=== PATIENT | female | born 1980 | race Caucasian/White ===

== ENCOUNTER 2017-03-12 11:39 | Emergency (ER) | payer SELFPAY ==
[2017-03-12 12:21] VITALS: BP 143/99
[2017-03-12] MEDS ORDERED: DELTASONE PO ONE (15:07)
[2017-03-12] MEDS ORDERED: TESSALON PERLES PO ONE (15:07)
--- NOTE | 2017-03-12 15:34 | Emergency Department Report ---
ED ENT HPI - General Chief complaint: Sore Throat Stated complaint: SORE THROAT Time Seen by Provider: 03/12/17 14:49 Source: patient Mode of arrival: Ambulatory Limitations: No Limitations - History of Present Illness Initial comments: PT c/o sore throat x 1 week. PT states last week, she had fever, and it broke on . PT states that she has been coughing and having sore throat. PT states her voice has been hoarse for a few days. PT states her 8 year old goes to the paralegal tomorrow for cough. MD complaint: sore throat Onset/Timin -: Gradual, week(s) Location: throat Severity: mild (sore throat ), severe (cough ) Severity scale (0 -10): 4 Quality: aching Consistency: constant Improves with: swallowing (warm liquids ) Worsens with: other (coughing ) Associated Symptoms: fever, cough - Related Data Home Medications Medication Instructions Recorded Confirmed Last Taken No Known Home Medications [No 03/12/17 03/12/17 Unknown Reported Home Medications] Allergies Allergy/AdvReac Type Severity Reaction Status Date / Time No Known Allergies Allergy Unverified 03/12/17 12:16 ED Dental HPI - General Chief complaint: Sore Throat Stated complaint: SORE THROAT Time Seen by Provider: 03/12/17 14:49 Source: patient Mode of arrival: Ambulatory Limitations: No Limitations - Related Data Home Medications Medication Instructions Recorded Confirmed Last Taken No Known Home Medications [No 03/12/17 03/12/17 Unknown Reported Home Medications] Allergies Allergy/AdvReac Type Severity Reaction Status Date / Time No Known Allergies Allergy Unverified 03/12/17 12:16 ED Review of Systems ROS: Stated complaint: SORE THROAT Other details as noted in HPI Comment: All other systems reviewed and negative Constitutional: fever ENT: throat pain. denies: ear pain Respiratory: cough, other (productive green sputum, at times pt states she coughs so hard, that it has some traces of blood). denies: shortness of breath , SOB with exertion, SOB at rest Gastrointestinal: denies: vomiting ED Past Medical Hx - Past Medical History Previous Medical History?: No - Surgical History Past Surgical History?: No - Social History Smoking Status: Never Smoker Substance Use Type: None - Medications Home Medications: Home Medications Medication Instructions Recorded Confirmed Last Taken Type No Known Home Medications [No 03/12/17 03/12/17 Unknown History Reported Home Medications] ED Physical Exam - General Limitations: No Limitations General appearance: alert, in no apparent distress - Head Head exam: Present: atraumatic, normocephalic - Eye Eye exam: Present: normal appearance, PERRL. Absent: conjunctival injection - ENT ENT exam: Present: normal exam, normal orophraynx, mucous membranes moist, TM's normal bilaterally, normal external ear exam - Neck Neck exam: Present: normal inspection. Absent: tenderness, lymphadenopathy - Respiratory Respiratory exam: Present: normal lung sounds bilaterally, other (wet sounding cough during exam ). Absent: respiratory distress, wheezes - Cardiovascular Cardiovascular Exam: Present: regular rate, normal rhythm - GI/Abdominal GI/Abdominal exam: Present: soft. Absent: tenderness - Extremities Exam Extremities exam: Present: normal inspection, full ROM - Back Exam Back exam: Present: normal inspection, full ROM - Neurological Exam Neurological exam: Present: alert, oriented X3, normal gait - Psychiatric Psychiatric exam: Present: normal affect, normal mood - Skin Skin exam: Present: warm, dry, intact ED Course Vital Signs 03/12/17 12:17 Temperature 98.9 F Pulse Rate 72 Respiratory 20 Rate Blood Pressure 143/99 O2 Sat by Pulse 100 Oximetry - Reevaluation(s) Reevaluation #1: 03/12/17 16:21 PT aware of Xr result. PT states no improvement in cough p prednisone and tessalon. - Pulse Oximetry Interpretation Digit-Finger Initial Pulse Oximetry Readin Actions Taken: none ED Medical Decision Making - Radiology Data Radiology results: report reviewed CXR-NAP - Medical Decision Making PT with a week long cough, with laryngitis. PT's cough is productive and worsening, will treat for complex bronchitis. - Differential Diagnosis pna, bronchitis, pharyngitis Critical care attestation.: If time is entered above; I have spent that time in minutes in the direct care of this critically ill patient, excluding procedure time. ED Disposition Clinical Impression: Bronchitis, Acute laryngitis Disposition: DISCHARGED TO HOME OR SELFCARE Is pt being admited?: No Does the pt Need Aspirin: No Condition: Stable Instructions: Acute Bronchitis (ED), Pharyngitis (ED) Additional Instructions: follow up with PCP in 3-5 days for bp recheck Referrals: PRIMARY CARE, [Primary Care Provider] - 3-5 Days Time of Disposition: 16:24
--- NOTE | 2017-03-12 15:38 | XRay Report ---
ROUTINE CHEST, TWO VIEWS: HISTORY: Productive cough. The trachea, heart, mediastinal contour, lung [place] and bony thorax are unremarkable. IMPRESSION: Unremarkable chest x-ray.
== END 2017-03-12 16:32 | disposition home or self-care (01) ==
LOC: ED 11:39
DX: J40 Bronchitis, not specified as acute or chronic (principal); J02.9 Acute pharyngitis, unspecified
CPT/HCPCS: 71020; 99283; J7512